=== PATIENT | female | born 1975 | race Caucasian/White ===

== ENCOUNTER 2017-11-13 18:47 | Emergency (ER) | END 2017-11-13 19:09 | disposition left against medical advice (07) ==

== ENCOUNTER 2018-12-20 11:11 | Emergency (ER) | payer MEDICAID ==
[~2018-12-20] VITALS: Ht 165.1 cm; Wt 78.6 kg
[2018-12-20 11:15] VITALS: Ht 165.1 cm; Wt 78.6 kg
[2018-12-20] MEDS ORDERED: ONDANSETRON 4 MG INJ IV STA (11:53)
[2018-12-20] MEDS ORDERED: SOD CHLORIDE 0.9% 1,000 ML IV STA (11:53)
[2018-12-20] MEDS ORDERED: BELLADONNA/PHENOBARBITAL TAB PO STA (12:24)
[2018-12-20] MEDS ORDERED: FAMOTIDINE 20 MG INJ IV STA (12:24)
[2018-12-20] MEDS ORDERED: LIDOCAINE/MYLANTA 40 ML BTL PO STA (12:24)
[2018-12-20] MEDS ORDERED: FAMO-96 PO (13:15)
[2018-12-20] MEDS ORDERED: ONDA8TAB9 PO (13:15)
--- NOTE | 2018-12-20 13:15 | ERD ---
ER Documentation Chief Complaint Chief Complaint Complains of abdominal pain with vomiting x 3 days HPI This is a 43-year-old female with a history of thyroid disease who is presenting with 2-3 days of waxing and waning burning cramping epigastric pain with nausea and a few episodes of nonbilious nonbloody vomiting, exacerbated by eating. 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 The patient does not endorse any other abdominal pain. The patient's pain has actually resolved at this time. She is not have a history of abdominal surgery. She denies any constipation, but she does report 2 days of diarrhea. She reports loose watery brown nonbloody stooling. She has not had any black or bloody or tarry stools. She denies any dysuria or hematuria or urgency or frequency. The patient is also wondering about the possibility of gastroenteritis. The patient denies feeling sick recently. The patient denies fever or chills. The patient has had no headache or vision changes. The patient does not endorse neck or back pain. The patient denies lightheadedness or dizziness. The patient has had no chest pain or trouble breathing. The patient has had no focal deficits. The patient has had no weakness or numbness or tingling to the face or extremities. ROS All systems reviewed and are negative except as per history of present illness. Allergies Allergies: Coded Allergies: No Known Allergy (Unverified , 12/20/18) PMhx/Soc History of Surgery: No Anesthesia Reaction: No Hx Neurological Disorder: No Hx Respiratory Disorders: No Hx Cardiac Disorders: No Hx Psychiatric Problems: No Hx Miscellaneous Medical Probl: Yes (hypothyroidism) Hx Alcohol Use: No Hx Substance Use: No Hx Tobacco Use: No Smoking Status: Never smoker FmHx Family History: No diabetes Physical Exam Vitals Vital Signs Date Temp Pulse Resp B/P (MAP) Pulse Ox O2 O2 Flow FiO2 Time Delivery Rate 12/20/18 98.8 72 20 119/61 99 11:15 (80) Physical Exam Const: No acute distress Head: Atraumatic Eyes: Normal Conjunctiva ENT: Normal External Ears, Nose and Mouth. Neck: Full range of motion. No meningismus. Resp: Clear to auscultation bilaterally Cardio: Regular rate and rhythm, no murmurs Abd: Soft, non distended. Mild epigastric tenderness. Normal bowel sounds Skin: No petechiae or rashes Back: No midline or flank tenderness Ext: No cyanosis, or edema Neur: Awake and alert Psych: Normal Mood and Affect Result Diagram: 12/20/18 1201 12/20/18 1201 Results 24 hrs Laboratory Tests Test 12/20/18 12:01 White Blood Count 7.8 10^3/ul Red Blood Count 4.51 10^6/ul Hemoglobin 11.3 g/dl Hematocrit 36.4 % Mean Corpuscular Volume 80.7 fl Mean Corpuscular Hemoglobin 25.1 pg Mean Corpuscular Hemoglobin Concent 31.0 g/dl Red Cell Distribution Width 14.7 % Platelet Count 390 10^3/UL Mean Platelet Volume 9.3 fl Immature Granulocytes % 0.300 % Neutrophils % 60.8 % Lymphocytes % 28.9 % Monocytes % 7.2 % Eosinophils % 2.4 % Basophils % 0.4 % Nucleated Red Blood Cells % 0.0 /100WBC Immature Granulocytes # 0.020 10^3/ul Neutrophils # 4.8 10^3/ul Lymphocytes # 2.3 10^3/ul Monocytes # 0.6 10^3/ul Eosinophils # 0.2 10^3/ul Basophils # 0.0 10^3/ul Nucleated Red Blood Cells # 0.0 10^3/ul Sodium Level 143 mmol/L Potassium Level 4.2 mmol/L Chloride Level 108 mmol/L Carbon Dioxide Level 24 mmol/L Anion Gap 11 Blood Urea Nitrogen 14 mg/dl Creatinine 0.68 mg/dl Est Glomerular Filtrat Rate mL/min > 60 mL/min Glucose Level 94 mg/dl Calcium Level 9.5 mg/dl Total Bilirubin 0.3 mg/dl Direct Bilirubin 0.00 mg/dl Indirect Bilirubin 0.3 mg/dl Aspartate Amino Transf (AST/SGOT) 24 IU/L Alanine Aminotransferase (ALT/SGPT) 22 IU/L Alkaline Phosphatase 104 IU/L Total Protein 7.8 g/dl Albumin 4.3 g/dl Globulin 3.50 g/dl Albumin/Globulin Ratio 1.22 Lipase 128 U/L Current Medications Medications Dose Sig/Lisette Start Time Status Last (Trade) Ordered Route PRN Stop Time Admin Dose Reason Admin Sodium 1,000 ml @ Q1H STAT 12/20/18 DC 12/20/18 Chloride 1,000 mls/hr IV 11:53 12:47 12/20/18 12:52 Ondansetron 4 mg ONCE STAT 12/20/18 DC 12/20/18 HCl (Zofran IV 11:53 12:47 Inj) 12/20/18 11:54 Famotidine 20 mg ONCE STAT 12/20/18 DC 12/20/18 (Pepcid Iv) IV 12:24 12:47 12/20/18 12:26 40 ml ONCE STAT 12/20/18 DC 12/20/18 Miscellaneous PO 12:24 12:48 Medication 12/20/18 12:26 (Gi Cocktail (2)) Belladonna/ 2 tab ONCE STAT 12/20/18 DC 12/20/18 Phenobarbital PO 12:24 12:47 () 12/20/18 12:26 Procedures/MDM MDM The patient's presentation warrants further investigation. Previous medical records, if available, were reviewed. LABS The patient's laboratory testing was obtained and reviewed. No emergent treatment was required unless described below. CBC: No E/o systemic infection or thrombocytopenia. Mild normocytic anemia, nonemergent. Chemistry: No E/o severe acidosis or alkalosis or renal failure or liver disease or diabetic ketoacidosis Lipase: No E/o pancreatitis Urine: Patient declined to provide. TREATMENT/DISPOSITION The patient presents with epigastric pain, nausea, a few episodes of vomiting and a few episodes of diarrhea. GERD versus PUD versus gastritis or possibilities. The patient does endorse a diet that could lead to this diagnosis. Gastroenteritis is also certainly a possibility. The patient does not have any evidence of peritonitis. The patient does not have clinical symptoms concerning for mesenteric ischemia or ischemic colitis. The patient does not have right upper quadrant tenderness, and I have low suspicion for gallstones, cholecystitis or biliary colic. The patient does not have left upper quadrant tenderness. I have low suspicion for pancreatitis. The patient does not have any right lower quadrant tenderness, or periumbilical tenderness. I have low suspicion for appendicitis. The patient does not have suprapubic te nderness. I have decreased suspicion for cystitis. The patient does not have any left lower quadrant tenderness, and I have low suspicion for diverticulosis or diverticulitis. The patient does not have any flank tenderness. The patient does not have gross hematuria. I have decreased suspicion for nephrolithiasis or renal colic. The patient does not have any palpable pulsatile mass or severe abdominal pain radiating to the back. I have low suspicion for aortic aneurysm, dissection or rupture. The patient was treated with IV fluids, Zofran, Pepcid and a GI cocktail with improvement of her pain. DISCHARGE Upon reevaluation of the patient, symptoms have improved. No emergent diagnoses were identified. At this time, I feel that the patient stable for discharge. The patient was instructed to follow-up with a primary care physician in 1-3 days. The patient will be given strict precautions with which to return to the emergency department. Prescriptions: Zofran, Pepcid Disclaimer: Inadvertent spelling and grammatical errors are likely due to EHR/dictation software use and do not reflect on the overall quality of patient care. Note that the electronic time recorded on this note does not necessarily reflect the actual time of the patient encounter. Departure Diagnosis: Primary Impression: Epigastric pain Additional Impressions: Nausea vomiting and diarrhea Normocytic anemia Condition: Stable Patient Instructions: Epigastric Pain (Uncertain Cause), Gastritis Vs. Ulcer Additional Instructions: Thank you for for coming to [facility] for your care today. Please ask your nurse or provider if you have questions about your care today and do not leave until all your questions have been answered. Please use any medications given as directed and follow-up with your doctor (or the doctor you were referred to) in the next 1-3 days. If you do not have a primary care doctor you may follow up at the [facility] or [facility] (listed below). You may also use motrin and tylenol as needed for fever and/or pain unless instructed otherwise by your provider or nurse. Indications for more urgent follow-up have been discussed, but you may return to the Emergency Department at ANY time for any worrisome or worsening symptoms. If you have abdominal pain, please know that no test or exam you received is perfect and you should follow up within 8 hours for continued pain. If you had any imaging studies today, such as an X-Ray or CT Scan, these studies will be reviewed later by a radiologist. You will be called if there are important findings that were not identified today, so make sure the contact information you provided at registration is correct. If you received any narcotic pain control medicine today, such as Vicodin, Morphine or Dilaudid, your coordination and judgment may be affected for a number of hours. Please do not drive or operate heavy machinery, and you may want someone to assist you at home. If you were given a prescription for narcotic medication, be aware that it is very addictive- use sparingly and only if necessary. PLEASE SEEK FURTHER EVALUATION AND MANAGEMENT AT YOUR DOCTORS OFFICE WITHIN THE NEXT 1-3 DAYS. IT IS YOUR RESPONSIBILITY TO MAKE AN APPOINTMENT FOR FOLOW-UP CARE. IF YOU HAVE A PRIMARY DOCTOR, PLEASE CALL THEIR OFFICE TO SCHEDULE AN APPOINTMENT FOR FOLLOW UP. IF YOU DO NOT HAVE A PRIMARY DOCTOR YOU CAN CALL OUR PHYSICIAN REFERRAL HOTLINE AT IF YOU CAN NOT AFFORD TO SEE A PHYSICIAN YOU CAN CHOSE FROM THE FOLLOWING [facility]: [facility] [address]. [facility] [address] [facility] [facility] [address] [facility] [address] [facility]. [facility] [address] [facility] [facility]. [address] FAIZA CHRISTOPHER MD Dec 20, 2018 13:15
[2018-12-20 13:41] VITALS: BP 121/94; PULSE 61; RESP 17
== END 2018-12-20 13:45 | disposition home or self-care (01) ==
LOC: E/R 11:11
DX: D64.9 Anemia, unspecified (principal); R11.2 Nausea with vomiting, unspecified; R19.7 Diarrhea, unspecified; E03.9 Hypothyroidism, unspecified; R40.2142 Coma scale, eyes open, spontaneous, at arrival to emergency department; R40.2252 Coma scale, best verbal response, oriented, at arrival to emergency department; R40.2362 Coma scale, best motor response, obeys commands, at arrival to emergency department
CPT/HCPCS: 36415; 80053; 83690; 85025; 96374; 96375; J2405; J7030; Z7502; Z7610

== ENCOUNTER 2019-01-23 15:52 | Emergency (ER) | payer MEDICAID ==
[~2019-01-23] VITALS: Ht 160 cm; Wt 76.7 kg
[~2019-01-23 15:52] MED LIST: FAMO-96 PO; ONDA8TAB9 PO
[2019-01-23 15:57] VITALS: Ht 160 cm; Wt 76.7 kg
--- NOTE | 2019-01-23 18:11 | ERD ---
ER Documentation Chief Complaint Chief Complaint lt pelvic pain pain , vag bleed x 3 days HPI This is a 43-year-old female who is here for left pelvic pain vaginal bleeding. The patient states that she is having regular cycles but they are lasting 8 days long with heavy vaginal bleeding and she is having some left pelvic pain. She says that she has a left ovarian cyst. She is not having any clots. She denies being . She says that she started bleeding on her normal menstrual cycle schedule III days ago. However, the bleeding is a bit heavier and there is more cramps than usual ROS All systems reviewed and are negative except as per history of present illness. Medications Home Meds Active Scripts Ibuprofen* (Motrin*) 800 Mg Tab, 800 MG PO Q6H PRN for PAIN AND OR ELEVATED TEMP, #30 TAB Prov:ANGELINE NELSON DO 01/23/19 Norgestimate-Ethinyl Estradiol (Sprintec 28 Day Tablet) 1 Each Tablet, 1 EACH PO every day for 28 Days, #1 TAB 2 Refills Prov:ANGELINE NELSON DO 01/23/19 Ondansetron Hcl* (Zofran*) 8 Mg Tablet, 8 MG PO Q6H PRN for NAUSEA AND OR VOMITING, #20 TAB Prov:FAIZA CLEARY MD 12/20/18 Famotidine* (Pepcid*) 20 Mg Tablet, 20 MG PO BID for 14 Days, TAB Prov:FAIZA CLEARY MD 12/20/18 Allergies Allergies: Coded Allergies: No Known Allergy (Unverified , 12/20/18) PMhx/Soc History of Surgery: No Anesthesia Reaction: No Hx Neurological Disorder: No Hx Respiratory Disorders: No Hx Cardiac Disorders: No Hx Psychiatric Problems: No Hx Miscellaneous Medical Probl: Yes (hypothyroidism) Hx Alcohol Use: No Hx Substance Use: No Hx Tobacco Use: No Smoking Status: Never smoker FmHx Family History: No coronary disease Physical Exam Vitals Vital Signs Date Temp Pulse Resp B/P (MAP) Pulse Ox O2 O2 Flow FiO2 Time Delivery Rate 01/23/19 99.1 87 18 123/65 99 15:57 (84) Physical Exam Const: Well-developed, well-nourished Head: Atraumatic, normocephalic Eyes: Normal Conjunctiva, PERRLA, EOMI, normal sclera, no nystagmus ENT: Normal External Ears, Nose and Mouth, moist mucus membranes. Neck: Full range of motion. No meningismus, no lymphadenopathy. Resp: Clear to auscultation bilaterally, no wheezing, rhonchi, rales Cardio: Regular rate and rhythm, no murmurs, S1 S2 present Abd: Soft, mild left pelvic tenderness, non distended. Normal bowel sounds, no guarding or rebound, no pulsitile abdominal masses or bruits Skin: No petechiae or rashes, no ecchymosis , no maculopapular rash Back: No midline or flank tenderness Ext: No cyanosis, or edema, FROM x 4, normal inspection, neurovascularly intact x 4 Neur: Awake and alert, STR 5/5 x 4, sensation intact x 4, no focal findings, cerebellum intact Psych: Normal Mood and Affect Results 24 hrs Laboratory Tests Test 01/23/19 17:16 POC Beta HCG, Qualitative NEGATIVE Procedures/MDM Patient has a negative test. She has no evidence of ovarian cyst however she did not allow us to do a transvaginal ultrasound. She is likely having menorrhagia due to some estrogen dominance. 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 Will use 2 months of Sprintec Departure Diagnosis: Primary Impression: Excessive vaginal bleeding Condition: Stable ANGELINE NELSON DO January 23, 2019 18:11
[2019-01-23] MEDS ORDERED: NORG1TAB14 PO (18:26)
[2019-01-23] MEDS ORDERED: IBUP800T48 PO (18:26)
[2019-01-23 18:51] VITALS: BP 133/67; PULSE 66; RESP 16
== END 2019-01-23 18:51 | disposition home or self-care (01) ==
LOC: FTE 15:52
DX: N93.9 Abnormal uterine and vaginal bleeding, unspecified (principal); E03.9 Hypothyroidism, unspecified
CPT/HCPCS: 76856; 81025; Z7502